=== PATIENT | female | born 1955 | race Caucasian/White ===

== ENCOUNTER 2021-11-24 08:07 | Outpatient (CLI) | payer MEDICARE ==
[~2021-11-24] VITALS: Ht 172.7 cm; Wt 52.3 kg
== END 2021-11-24 15:32 | disposition home or self-care (01) ==
LOC: PREOP 08:07
PROVIDERS: ATTEND Specialist
DX: Z01.818 Encounter for other preprocedural examination (principal)

== ENCOUNTER 2022-02-13 14:23 | Inpatient (IN) | payer MEDICARE, OTHER ==
[~2022-02-13] VITALS: Ht 172 cm; Wt 50.4 kg
--- NOTE | 2022-02-13 15:06 | ED Neurological Problem ---
General Chief Complaint: General Problems/Pain Stated Complaint: POSS STROKE Nursing Triage Note: PT BROUGHT TO ED POV FOR POSSIBLE STROKE. PT STATES SHE WOKE UP AROUND 0600 AND FELT HER LEFT ARM WAS WEAK. PT REPORTS WEAKNESS WITH STANDING THAT IS ALSO NEW. DENIES INJURY. PT ALERT AND ORIENTED X'S 4. PT BROUGHT TO ROOM 02 VIA WC FROM VEHICLE. NO FACIAL DROOPING OR SLURRED SPEECH. PER PT SHE GOOGLED AND HER SYMPTOMS COULD BE A POSSIBLE STROKE. SHE READ THAT RED WINE COULD HELP SO SHE HAD A SMALL CUP OF IT AROUND 1335. NO IMPROVEMENT. DAUGHTER IN LOBBY AT THIS TIME. Source: patient Exam Limitations: no limitations History of Present Illness Date Seen by Provider: Feb 13, 2022 Time Seen by Provider: 14:48 Initial Comments Patient is a 66-year-old female past medical history significant for hypertension although she is not on medications for this who presents to the emergency department today with a chief complaint of weakness to the left upper extremity and weakness in both of her legs. Patient states about 2 weeks ago she had an episode where her left arm felt a little numb and weak. It resolved spontaneously. She did not seek medical care for this episode. She states she woke up at about 6:00 this morning with similar symptoms and it has not resolved so her daughter insisted that she come to the emergency room for evaluation. The patient denies any headache., Vision problems, speech difficulty or swallowing difficulty. She states the left arm is not "numb". She has had no chest pain or shortness of breath. No abdominal pain, nausea vomiting or diarrhea. No GI symptoms. She states that she can walk "okay". She has never had a stroke before. She is a non-smoker. Her mother had a history of TIAs. She is fairly healthy. She likes to approach health from a "natural" approach. The last time she had a general medical evaluation has been at least 2 years ago. All other review of systems reviewed and negative except as stated. Timing/Duration: other (9hr) Severity: moderate Associated Symptoms: weakness (Left upper extremity and leg) Allergies and Home Medications Allergies Coded Allergies: No Known Drug Allergies (Unverified , 11/24/21) Patient Home Medication List Home Medication List Reviewed: Yes Aspirin (Children's Aspirin) 81 Mg Tab.chew, 81 MG PO DAILY@0900 Prescribed by: KISHAN MARTINEZ on 02/14/22 1151 Atorvastatin Calcium (Lipitor) 40 Mg Tablet, 40 MG PO HS Prescribed by: KISHAN MARTINEZ on 02/14/22 1151 Review of Systems Review of Systems Constitutional: see HPI Eyes: No Symptoms Reported Ears, Nose, Mouth, Throat: no symptoms reported Respiratory: no symptoms reported Cardiovascular: no symptoms reported Gastrointestinal: no symptoms reported Genitourinary: no symptoms reported : No Musculoskeletal: other (Weak left arm) Skin: no symptoms reported Psychiatric/Neurological: Weakness (Left arm) All Other Systems Reviewed Negative Unless Noted: Yes Past Vxxecte-Qklghp-Bcbuow Hx Patient Social History Tobacco Use?: No Substance use?: No Alcohol Use?: Yes Alcohol type: Wine Alcohol Frequency: Rarely Pt feels they are or have been: No Past Medical History Surgery/Hospitalization HX: PMH; HTN. SURGERY; DENIES. Physical Exam Vital Signs Vital Signs - First Documented 02/13/22 14:25 Temp 36.1 Resp 18 B/P (MAP) 177/113 (134) O2 Delivery Room Air Capillary Refill : Less Than 3 Seconds Height, Weight, BMI Height: '" Weight: lbs. oz. kg; 17.00 BMI Method: General Appearance: WD/WN, no apparent distress, thin HEENT: PERRL/EOMI, pharynx normal Neck: full range of motion, supple, other (Patient has soft mobile 2 and half centimeter diameter mass overlying the right anterior neck. She states that its been there at least 30 years it is nontender and not erythematous) Respiratory: lungs clear, normal breath sounds, no respiratory distress, no accessory muscle use Cardiovascular: regular rate, rhythm, tachycardia (126), systolic murmur (3/6 systolic ejection murmur noted at the left upper sternal border and left cardiac apex, less obvious right upper sternal border), other (No carotid bruits are auscultated) Gastrointestinal: normal bowel sounds, non tender, soft Extremities: normal range of motion, non-tender, normal inspection, no pedal edema, no calf tenderness, normal capillary refill Neurologic/Psychiatric: 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 She has a tiny bit of left arm drift. Good hand strength good flexion strength, equal bilateral) Crainal Nerves: normal hearing, normal speech, PERRL Coordination/Gait: No normal finger to nose; negative Romberg's sign, ABN nose to finger (L) Motor/Sensory: no sensory deficit Skin: normal color, warm/dry Stroke Onset of Symptoms Date of Onset of Symptoms: Feb 13, 2022 Time of Symptom Onset: 06:00 Onset of Symptoms: No Symptoms onset unknown: Yes NIH Stroke Scale Assessment Select: Initial Level of Consciousness: 0=Alert (0), Level of Consciousness-Questions: 0=Answers both month/age (0), LOC Commands: 0=Performs both tasks (0), Gaze: Normal (0), Visual Dickens: 0=No visual loss (0), Facial Movement (Facial Paresis): 0=Normal symmetrical mnt (0), Motor Function-Arms Right: 0=No drift (0), Motor Function-Arms Left: 1=Drift (1), Motor Function-Legs Right: 0=No drift (0), Limb Ataxia: 1=Present in one limb (1), Sensory: 0=Normal:no loss (0), Best Language: 0=No aphasia (0), Dysarthria: 0=Normal (0), Extinction & Inattention: 0=No abnormality (0), T otal: 2 Progress/Results/Core Measures Results/Orders Lab Results Laboratory Tests Test 02/13/22 14:30 02/13/22 14:42 02/13/22 15:47 Range/Units White Blood Count 5.3 4.3-11.0 10^3/uL Red Blood Count 4.94 3.80-5.11 10^6/uL Hemoglobin 14.3 11.5-16.0 g/dL Hematocrit 43 35-52 % Mean Corpuscular Volume 87 80-99 fL Mean Corpuscular Hemoglobin 29 25-34 pg Mean Corpuscular Hemoglobin Concent 33 32-36 g/dL Red Cell Distribution Width 12.8 10.0-14.5 % Platelet Count 269 130-400 10^3/uL Mean Platelet Volume 8.7 L 9.0-12.2 fL Immature Granulocyte % (Auto) 0 % Neutrophils (%) (Auto) 62 42-75 % Lymphocytes (%) (Auto) 29 12-44 % Monocytes (%) (Auto) 7 0-12 % Eosinophils (%) (Auto) 1 0-10 % Basophils (%) (Auto) 0 0-10 % Neutrophils # (Auto) 3.3 1.8-7.8 X 10^3 Lymphocytes # (Auto) 1.5 1.0-4.0 X 10^3 Monocytes # (Auto) 0.4 0.0-1.0 X 10^3 Eosinophils # (Auto) 0.1 0.0-0.3 10^3/uL Basophils # (Auto) 0.0 0.0-0.1 10^3/uL Immature Granulocyte # (Auto) 0.0 0.0-0.1 10^3/uL Prothrombin Time 12.2 12.2-14.7 SEC INR Comment 0.9 0.8-1.4 Activated Partial Thromboplast Time 35 24-35 SEC D-Dimer < 0.27 0.00-0.49 UG/ML Sodium Level 143 135-145 MMOL/L Potassium Level 3.7 3.6-5.0 MMOL/L Chloride Level 105 98-107 MMOL/L Carbon Dioxide Level 25 21-32 MMOL/L Anion Gap 13 5-14 MMOL/L Blood Urea Nitrogen 10 7-18 MG/DL Creatinine 0.74 0.60-1.30 MG/DL Estimat Glomerular Filtration Rate 89 BUN/Creatinine Ratio 14 Glucose Level 101 70-105 MG/DL Calcium Level 10.0 8.5-10.1 MG/DL Corrected Calcium 8.5-10.1 MG/DL Total Bilirubin 0.4 0.1-1.0 MG/DL Aspartate Amino Transf (AST/SGOT) 13 5-34 U/L Alanine Aminotransferase (ALT/SGPT) 13 0-55 U/L Alkaline Phosphatase 66 40-136 U/L Troponin I < 0.028 <0.028 NG/ML Total Protein 7.6 6.4-8.2 GM/DL Albumin 4.9 H 3.2-4.5 GM/DL Thyroid Stimulating Hormone (TSH) 3.58 0.35-4.94 UIU/ML Free Thyroxine 0.91 0.70-1.48 NG/DL Glucometer 94 70-110 MG/DL Urine Color YELLOW Urine Clarity CLEAR Urine pH 7.5 5-9 Urine Specific [place] 1.010 L 1.016-1.022 Urine Protein NEGATIVE NEGATIVE Urine Glucose (UA) NEGATIVE NEGATIVE Urine Ketones NEGATIVE NEGATIVE Urine Nitrite NEGATIVE NEGATIVE Urine Bilirubin NEGATIVE NEGATIVE Urine Urobilinogen 0.2 < = 1.0 MG/DL Urine Leukocyte Esterase NEGATIVE NEGATIVE Urine RBC (Auto) TRACE-I H NEGATIVE Urine RBC RARE /HPF Urine WBC NONE /HPF Urine Squamous Epithelial Cells NONE /HPF Urine Crystals NONE /LPF Urine Bacteria NEGATIVE /HPF Urine Casts NONE /LPF Urine Mucus NEGATIVE /LPF Urine Culture Indicated NO My Orders Orders - ALLY MERINO MD Cbc With Automated Diff (02/13/22 14:59) Protime With Inr (02/13/22 14:59) Partial Thromboplastin Time (02/13/22 14:59) Comprehensive Metabolic Panel (02/13/22 14:59) Fibrin Degradation Products (02/13/22 14:59) Troponin I [place] (02/13/22 14:59) Ua Culture If Indicated (02/13/22 14:59) Chest 1 View, Ap/Pa Only (02/13/22 14:59) Ekg Tracing (02/13/22 14:59) Nothing By Mouth (02/13/22 Lunch) Accucheck Stat ONCE (02/13/22 14:59) Ed Iv/Invasive Line Start (02/13/22 14:59) Ed Iv/Invasive Line Start (02/13/22 14:59) Vital Signs Stroke Patient Q15M (02/13/22 14:59) Ct Head Wo-R/O Stroke (02/13/22 14:59) O2 (02/13/22 14:59) Intake & Output ,14,22 (02/13/22 14:59) Monitor-Rhythm Ecg Trace Only (02/13/22 14:59) Dysphagia Screening Tool Q10MX1 (02/13/22 14:59) Post Thrombolytic Adminstratio (02/13/22 14:59) Lipid Panel (02/14/22 06:00) Thyroid Stimulating Hormone (02/13/22 16:01) Free T4 (Free Thyroxine) (02/13/22 16:01) Ct Angio Head/Neck (02/13/22 16:25) Iohexol Injection (Omnipaque 350 Mg/Ml 1 (02/13/22 17:00) Received Contrast (Hold Metformin- Contr (02/13/22 17:00) Ns (Ivpb) (Sodium Chloride 0.9% Ivpb Bag (02/13/22 17:00) Sodium Chloride Flush (Catheter Flush Sy (02/13/22 17:00) Medications Given in ED Vital Signs/I&O 02/13/22 14:25 Temp 36.1 Resp 18 B/P (MAP) 177/113 (134) O2 Delivery Room Air Blood Pressure Mean: 134 FSBG Bedside Testing Finger Stick Blood Glucose: 94 Blood Glucose Action Taken: PROVIDER NOTIFIED. Admisison Planning May Need Admission (Planning): 15:09 Progress Progress Note : Time: 15:59 Progress Note I spoke with [facility] neurology at this time, they do recommend further vascular imaging such as CT angio of the head and neck or MRA of the head and neck with contrast. At this time we do not have MRI available so I will pursue CT angio. Initial ECG Impression Date: Feb 13, 2022 Initial ECG Impression Time: 15:59 Initial ECG Rate: 89 Initial ECG Rhythm: Normal Sinus Initial ECG Intervals: Normal Initial ECG Impression: Normal Comment No ST segment elevation or depression, no ectopy Diagnostic Imaging Comments [facility], [place] NAME: KATHY SNOW [facility] REC#: [id number] PT STATUS: REG ER : 1955 PHYSICIAN: ALLY MERINO MD ADMIT DATE: 02/13/22/ER Draft Date of Exam:02/13/22 CT HEAD WO-R/O STROKE PROCEDURE: CT head wo r/o stroke. TECHNIQUE: Multiple contiguous axial images were obtained through the brain without the use of intravenous contrast. Auto Exposure Controls were utilized during the CT exam to meet ALARA standards for radiation dose reduction. INDICATION: Left-sided weakness. COMPARISON: No prior studies are available for comparison. FINDINGS: Ventricles and sulci are within normal limits. No sulcal effacement or midline shift is identified. No acute intra-axial or extra-axial hemorrhage is detected. Cisterns are patent. Visualized paranasal sinuses are clear. IMPRESSION: No acute intracranial process is detected. Dictated on workstation # [id number] Dict: 02/13/22 1515 Trans: 02/13/22 1519 [id number] Interpreted by: POWER ARNOLD MD Electronically signed by: [facility]: Xray Plain Films/CT/US/NM/MRI: chest Comments [facility] [place] NAME: KATHY SNOW [facility] REC#: [id number] PT STATUS: REG ER : 1955 PHYSICIAN: ALLY MERINO MD ADMIT DATE: 02/13/22/ER Draft Date of Exam:02/13/22 CHEST 1 VIEW, AP/PA ONLY INDICATION: Stroke. TECHNIQUE: Frontal chest obtained at 03:32 p.m. FINDINGS: Heart is borderline in size. The lungs show no focal infiltrate. There is no pneumothorax or pleural fluid. There is evidence of mass effect in the superior mediastinum with calcified density in the right side of the neck, displacing the trachea to the left. This may be due to a lesion of thyroid origin. IMPRESSION: No focal infiltrate or pneumothorax or pleural fluid. Mass effect in the superior mediastinum with shift of the trachea to the left side, with suggestion of calcified lesion. Consider ultrasound for further evaluation of the thyroid to determine if this is of thyroid origin. If this is not conclusive, then a CT may be helpful. Dictated on workstation # [id number] Dict: 02/13/22 1531 Trans: 02/13/22 1542 [facility] [id number] Interpreted by: LUIS ANGEL FORREST MD Electronically signed by: [facility]: CT Comments [facility] [place], [place] [facility] [id number] PT STATUS: REG ER : 1955 PHYSICIAN: ALLY MERINO MD ADMIT DATE: 02/13/22/ER Draft Date of Exam:02/13/22 CT ANGIO HEAD/NECK EXAMINATION: CT angiography head and neck with and without contrast. TECHNIQUE: After intravenous administration of contrast, thin section axial CT angiography of the head and neck was performed. Source data was reformatted into 3D MIP projections. All CT scans use one or more of the following dose optimizing techniques: automated exposure control, MA and/or KvP adjustment based on a patient size and exam type, or iterative reconstruction. HISTORY: left sided stroke symptoms COMPARISON: None available. FINDINGS: The middle cerebral arteries are normal. The posterior cerebral arteries are normal. The anterior cerebral arteries are normal. There is no large vessel occlusion. No aneurysm or vascular malformation seen. The origin of the left common carotid artery not included. Remaining left common carotid artery unremarkable patent in appearance. No dissection. No significant occlusion. Left internal carotid artery is patent with atherosclerotic disease intracranially. No significant stenosis. There is atherosclerotic disease in the right intracranial aspect of the internal carotid artery without significant stenosis. No dissection. The right common carotid artery is patent. Vertebral artery origins are normal. There is no significant stenosis or evidence for occlusion. No vertebral artery dissections. Delayed CT imaging of the brain not provided. There is a large lobular appearance to the right thyroid lobe which contains multiple lesions and calcifications. Sonographic characterization on a nonemergent basis recommended. No osseus lesions or fractures are seen. There is scarring in the visualized lung apices. IMPRESSION: 1. Normal vasculature in the head and neck without large vessel occlusion. 2. Large nodular and partially calcified right lobe of the thyroid gland. Sonographic characterization on a nonemergent basis recommended. Dictated on workstation # [id number] Dict: 02/13/221715 Trans: 02/13/221726 CV [id number] Interpreted by: ABE MCMULLEN MD Electronically signed by: Departure Communication (Admissions) Time/Spoke to Admitting Phy: 15:40 Dr Martinez Impression Primary Impression: CVA (cerebral vascular accident) Qualified Codes: I63.9 - Cerebral infarction, unspecified Additional Impression: High blood pressure Qualified Codes: I10 - Essential (primary) hypertension Disposition: ADMITTED INPATIENT Condition: Stable Admissions Decision to Admit Reason: Admit from ER (General) Decision to Admit/Date: Feb 13, 2022 Time/Decision to Admit Time: 15:08 Departure-Patient Inst. Referrals: NO,LOCAL PHYSICIAN (PCP/Family) Primary Care Physician Scripts Aspirin (Children's Aspirin) 81 Mg Tab.chew 81 MG PO DAILY@0900 for 30 Days, #30 TAB 0 Refills Prov: KISHAN MARTINEZ MD 02/14/22 Atorvastatin Calcium (Lipitor) 40 Mg Tablet 40 MG PO HS for 30 Days, #30 TAB 0 Refills Prov: KISHAN MARTINEZ MD 02/14/22 ALLY MERINO MD Feb 13, 2022 15:06
[2022-02-13 15:08] LABS: ALBUMIN 4.9 GM/DL (3.2-4.5); CHLORIDE 105 MMOL/L (98-107); POTASSIUM 3.7 MMOL/L (3.6-5.0); SODIUM 143 MMOL/L (135-145)
[2022-02-13 15:10] LABS: GLUCOSE 101 MG/DL (70-105); TOTAL PROTEIN 7.6 GM/DL (6.4-8.2)
[2022-02-13 15:11] LABS: CARBON DIOXIDE 25 MMOL/L (21-32)
[2022-02-13 15:12] LABS: BILIRUBIN,TOTAL 0.4 MG/DL (0.1-1.0)
[2022-02-13 15:14] LABS: ALKALINE PHOSPHATASE 66 U/L (40-136); CREATININE SERUM 0.74 MG/DL (0.60-1.30); GFR ESTIMATED 89
[2022-02-13 15:15] LABS: BUN/CREATININE RATIO 14
[2022-02-13 15:16] LABS: BASOPHILS % (AUTO) 0 % (0-10); EOSINOPHILS # (AUTO) 0.1 10^3/uL (0.0-0.3); EOSINOPHILS % (AUTO) 1 % (0-10); HEMATOCRIT 43 % (35-52); HEMOGLOBIN 14.3 g/dL (11.5-16.0); LYMPHOCYTES # (AUTO) 1.5 X 10^3 (1.0-4.0); LYMPHOCYTES % (AUTO) 29 % (12-44); MEAN CORPUSCULAR HEMOGLOBIN 29 pg (25-34); MEAN CORPUSCULAR HGB CONC 33 g/dL (32-36); MEAN CORPUSCULAR VOLUME 87 fL (80-99); MEAN PLATELET VOLUME 8.7 fL (9.0-12.2); MONOCYTES # (AUTO) 0.4 X 10^3 (0.0-1.0); MONOCYTES % (AUTO) 7 % (0-12); NEUTROPHILS # (AUTO) 3.3 X 10^3 (1.8-7.8); NEUTROPHILS % (AUTO) 62 % (42-75); PLATELET COUNT 269 10^3/uL (130-400); WHITE BLOOD COUNT 5.3 10^3/uL (4.3-11.0)
[2022-02-13 15:17] LABS: ALANINE AMINOTRANSFERASE 13 U/L (0-55)
--- NOTE | 2022-02-13 15:20 | Diagnostic Imaging Report ---
PROCEDURE: CT head wo r/o stroke. TECHNIQUE: Multiple contiguous axial images were obtained through the brain without the use of intravenous contrast. Auto Exposure Controls were utilized during the CT exam to meet ALARA standards for radiation dose reduction. INDICATION: Left-sided weakness. COMPARISON: No prior studies are available for comparison. FINDINGS: Ventricles and sulci are within normal limits. No sulcal effacement or midline shift is identified. No acute intra-axial or extra-axial hemorrhage is detected. Cisterns are patent. Visualized paranasal sinuses are clear. IMPRESSION: No acute intracranial process is detected. Dictated by: Dictated on workstation # [id number]
--- NOTE | 2022-02-13 15:42 | Diagnostic Imaging Report ---
INDICATION: Stroke. TECHNIQUE: Frontal chest obtained at 03:32 p.m. FINDINGS: Heart is borderline in size. The lungs show no focal infiltrate. There is no pneumothorax or pleural fluid. There is evidence of mass effect in the superior mediastinum with calcified density in the right side of the neck, displacing the trachea to the left. This may be due to a lesion of thyroid origin. IMPRESSION: No focal infiltrate or pneumothorax or pleural fluid. Mass effect in the superior mediastinum with shift of the trachea to the left side, with suggestion of calcified lesion. Consider ultrasound for further evaluation of the thyroid to determine if this is of thyroid origin. If this is not conclusive, then a CT may be helpful. Dictated by: Dictated on workstation # [id number]
[2022-02-13 15:53] LABS: BILIRUBIN,URINE NEGATIVE (NEGATIVE); CLARITY,URINE CLEAR; COLOR,URINE YELLOW; GLUCOSE, URINE (UA) NEGATIVE (NEGATIVE); KETONES,URINE NEGATIVE (NEGATIVE); LEUKOCYTE ESTERASE ,URINE NEGATIVE (NEGATIVE); NITRITE,URINE NEGATIVE (NEGATIVE); PH,URINE 7.5 (5-9); PROTEIN,URINE NEGATIVE (NEGATIVE)
[2022-02-13 15:55] LABS: FIBRIN DEGRADATION PRODUCTS < 0.27 UG/ML (0.00-0.49); INR 0.9 (0.8-1.4); PARTIAL THROMBOPLASTIN TIME 35 SEC (24-35); PROTHROMBIN TIME PATIENT 12.2 SEC (12.2-14.7)
[2022-02-13 16:11] LABS: BACTERIA,URINE NEGATIVE /HPF; RBC,URINE RARE /HPF
[2022-02-13 16:35] LABS: FREE T4 (FREE THYROXINE) 0.91 NG/DL (0.70-1.48)
[2022-02-13] MEDS ORDERED: HOLD METFORMIN - RECEIVED CONTRAST 20 ML VIAL IV SCH (17:00)
[2022-02-13] MEDS ORDERED: CATHETER FLUSH 10 ML SYR IV PRN ×2 (17:00→18:45)
[2022-02-13] MEDS ORDERED: IOHEXOL 350 MG/ML 100 ML (OMNIPAQUE 350) VIAL IV ONE (17:00)
[2022-02-13] MEDS ORDERED: NS 100 ML (IVPB) BAG IV ONE (17:00)
--- NOTE | 2022-02-13 17:28 | Diagnostic Imaging Report ---
EXAMINATION: CT angiography head and neck with and without contrast. TECHNIQUE: After intravenous administration of contrast, thin section axial CT angiography of the head and neck was performed. Source data was reformatted into 3D MIP projections. All CT scans use one or more of the following dose optimizing techniques: automated exposure control, MA and/or KvP adjustment based on a patient size and exam type, or iterative reconstruction. HISTORY: left sided stroke symptoms COMPARISON: None available. FINDINGS: The middle cerebral arteries are normal. The posterior cerebral arteries are normal. The anterior cerebral arteries are normal. There is no large vessel occlusion. No aneurysm or vascular malformation seen. The origin of the left common carotid artery not included. Remaining left common carotid artery unremarkable patent in appearance. No dissection. No significant occlusion. Left internal carotid artery is patent with atherosclerotic disease intracranially. No significant stenosis. There is atherosclerotic disease in the right intracranial aspect of the internal carotid artery without significant stenosis. No dissection. The right common carotid artery is patent. Vertebral artery origins are normal. There is no significant stenosis or evidence for occlusion. No vertebral artery dissections. Delayed CT imaging of the brain not provided. There is a large lobular appearance to the right thyroid lobe which contains multiple lesions and calcifications. Sonographic characterization on a nonemergent basis recommended. No osseus lesions or fractures are seen. There is scarring in the visualized lung apices. IMPRESSION: 1. Normal vasculature in the head and neck without large vessel occlusion. 2. Large nodular and partially calcified right lobe of the thyroid gland. Sonographic characterization on a nonemergent basis recommended. Dictated by: Dictated on workstation # [id number]
[2022-02-13 18:30] VITALS: BP 158/78
[2022-02-13] MEDS ORDERED: ONDANSETRON 4 MG (ZOFRAN) ORAL DISSOLVE TAB PO PRN (19:15)
[2022-02-13] MEDS ORDERED: MELATONIN 3 MG TABLET PO PRN (19:15)
[2022-02-13] MEDS ORDERED: ONDANSETRON 4 MG/2 ML (SDV) Z0FRAN IV PRN (19:15)
[2022-02-13] MEDS ORDERED: diphenhydrAMINE 25 MG TAB (BENADRYL) PO PRN (19:15)
[2022-02-13] MEDS ORDERED: ACETAMINOPHEN 325 MG TABLET PO PRN (19:15)
[2022-02-13] MEDS ORDERED: ANTACID SUSP 30 ML UDC (MYLANTA) PO PRN (19:15)
[2022-02-13] MEDS ORDERED: polyethylene glycoL POWDER 17 GM (MIRALAX) PACK PO PRN (19:15)
[2022-02-13 19:53] VITALS: BP 176/82
[2022-02-13] MEDS ORDERED: RT-ALBUTEROL SULF 2.5 MG/3 ML PRE-MIX VIAL INH PRN (20:30)
[2022-02-13] MEDS ORDERED: ENOXAPARIN INJECTION 30 MG/0.3 ML SYR SC SCH (21:43)
[2022-02-13] MEDS: CATHETER FLUSH 10 ML SYR IV SCH (22:06)
[2022-02-13 23:52] VITALS: BP 156/93
[2022-02-14 03:29] VITALS: BP 131/73
[2022-02-14 04:50] VITALS: BP 93/54
[2022-02-14] MEDS ORDERED: NS IV 1000 ML 1,000 ML ONE (04:58)
[2022-02-14] MEDS ORDERED: NS IV 1000 ML 1,000 ML IV SCH (05:30)
[2022-02-14 05:45] VITALS: BP 118/60
[2022-02-14 05:57] LABS: TRIGLYCERIDES 133 MG/DL (<150); VLDL CHOLESTEROL 27 MG/DL (5-40)
[2022-02-14 06:01] LABS: CHOLESTEROL 216 MG/DL (< 200)
[2022-02-14 06:02] LABS: HDL CHOLESTEROL 65 MG/DL (40-60)
[2022-02-14] MEDS: CATHETER FLUSH 10 ML SYR IV SCH (06:18)
[2022-02-14 08:44] VITALS: BP 131/87
--- NOTE | 2022-02-14 08:48 | Diagnostic Imaging Report ---
CLINICAL INDICATION: Patient with CVA. Comparison: None Exam: Real-time ultrasound carotid Doppler duplex imaging is performed bilaterally with multiple real-time grayscale images obtained in various projections. Additional spectral analysis and color Doppler duple images were also obtained. Peak systolic velocity, ICA/CCA peak systolic ratio, spectral analysis, and vascular morphology are studied. Findings: ARTERY VELOCITY Right Left CCA 0.64 m/s 0.65 m/s ICA 0.58 m/s 0.67 m/s ECA 0.82 m/s 0.70 m/s ICA/CCA 0.9 1.0 VERT.ART Antegrade Antegrade There is minimal atherosclerotic disease involving the bilateral carotid arteries with no significant stenosis. Enlarged heterogeneous thyroid gland with right thyroid nodule noted. Thyroid ultrasound would better evaluate. Impression: 1: There is mild bilateral carotid artery atherosclerotic disease with no grayscale or Doppler evidence of significant vascular stenosis. 2: Heterogeneous and enlarged thyroid gland with right thyroid nodule seen. Thyroid ultrasound is suggested for further evaluation. Dictated by: Dictated on workstation # [id number]
[2022-02-14] MEDS ORDERED: ASPIRIN 81 MG CHEW (CHILDREN'S ASA) PO SCH (09:00)
--- NOTE | 2022-02-14 09:33 | Diagnostic Imaging Report ---
PROCEDURE: MR imaging of the brain without contrast. TECHNIQUE: Multiplanar, multisequence MR imaging of the brain was performed without contrast. INDICATION: Left-sided weakness. Concern for acute ischemia. COMPARISON: 02/13/2022. FINDINGS: A small focus of acute/subacute ischemia is seen involving the right basal ganglia and extending into the right tavarez radiata. No associated hemorrhage or mass effect. Additional small amount of scattered chronic microvascular disease is seen in the subcortical white matter. The ventricles, cortical sulci, and basilar cisterns are symmetric and unremarkable. The sellar and suprasellar regions have a normal appearance. The brainstem and posterior fossa are unremarkable. The paranasal sinuses and mastoid air cells demonstrate normal signal characteristics. The globes and orbits are symmetric and unremarkable. The scalp and calvarium have a normal appearance. IMPRESSION: 1. Small focus of acute/subacute ischemia involving the right basal ganglia and right tavarez radiata. No associated hemorrhage or mass effect. 2. Scattered small amount of chronic microvascular disease in the periventricular and subcortical white matter. Dictated by: Dictated on workstation # [id number]
[2022-02-14 11:29] VITALS: BP 153/81
--- NOTE | 2022-02-14 11:41 | Physical Therapy Evaluation ---
PT Evaluation-General Medical Diagnosis Admission Date Feb 13, 2022 at 17:42 Medical Diagnosis: CVA/HTN Onset Date: Feb 13, 2022 Therapy Diagnosis Therapy Diagnosis: generalized weakness/debility Precautions Precautions/Isolations: Fall Prevention, Standard Precautions Referral Physician: Jeff Reason for Referral: Evaluation/Treatment Medical History Pertinent Medical History: HTN Current History ER secondary to L UE weakness Reviewed History: Yes Social History Home: Single Level Current Living Status: Spouse Entry Into Home: Stairs With Railing PT Steps Into Home: 4 Prior Prior Level of Function SCALE: Activities may be completed with or without assistive devices. 7-Oabmttttnn-hznhsup completes the activity by him/herself with no assistance from a helper. 5-Set-up or Clean-up Assistance-helper sets up or cleans up; patient completes activity. [place] assists only prior to or following the activity. 4-Supervision or Touching Assistance-helper provides verbal cues and/or touching/steadying and/or contact guard assistance as patient completes activity. Assistance may be provided throughout the activity or intermittently. 3-Partial/Moderate Assistance-helper does LESS THAN HALF the effort. [place] l ifts, holds or supports trunk or limbs, but provides less than half the effort. 2-Substantial/Maximal Assistance-helper does MORE THAN HALF the effort. [place] lifts or holds trunk or limbs and provides more than half the effort. 4-Zafkjmlxa-ctpvpa does ALL the effort. Patient does none of the effort to complete the activity. Or, the assistance of 2 or more helpers is required for t he patient to complete the activity. If activity was not attempted, code reason: 7-Patient Refused. 9-Not Applicable-not attempted and the patient did not perform the activity before the current illness, exacerbation or injury. 10-Not Attempted due to Environmental Limitations-(lack of equipment, weather restraints, etc.). 88-Not Attempted due to Medical Conditions or Safety Concerns. Bed Mobility: 6 Transfers (B,C,W/C): 6 Gait: 6 Stairs: 6 Indoor Mobility (Ambulation): Independent Stairs: Independent Prior Devices Use: None PT Evaluation-Current Subjective Patient agrees to PT. Spouse present. Objective Patient Orientation: Normal For Age ROM/Strength ROM Lower Extremities bilateral LE WFL Strength Lower Extremities left LE 3-/5 knee flexion/extension, hip flexion, DF/PF; right LE 4/5 grossly Integumentary/Posture Bowel Incontinence: No Bladder Incontinence: No Posture WFL Neuromuscular (Tone, Coordination, Reflexes) diminished coordination and proprioception left LE with noted left LE lag with ambulation Sensory Vision: Functional Hearing: Functional Transfers Roll Left to Right (QC): 6 Sit to Lying (QC): 6 Lying to Sitting/Side of Bed(Q: 6 Sit to Stand (QC): 4 Chair/Lut-pj-Pqiqn Xfer(QC): 4 Gait Mode of Locomotion: Walk Anticipated Mode of Locomotion: Walk Walk 10 feet (QC): 4 Walk 50 ft with 2 Turns(QC): 4 Walk 150 ft (QC): 4 Walking 10ft/uneven surface-QC: 4 Distance: 250' x 2 Gait Assistive Device: FWW Comments/Gait Description CGA for safety with noted left LE lag with diminished coordination Stairs #of Steps: 12 1 Step (curb) (QC): 4 4 Steps (QC): 4 12 Steps (QC): 4 CGA for safety with reciprocal pattern Balance Sitting Static: Normal Sitting Dynamic: Normal Standing Static: Fair Standing Dynamic: Fair Assessment/Needs 66 y.o. will benefit from skilled PT to address functional strength and mobility to improve current LOF to safely return to home at maximum LOF. Rehab Potential: Fair PT Skein Spooler Goals Detention Goals PT Skein Spooler Goals Time Frame: Feb 25, 2022 Roll Left & Right (QC): 6 Sit to Lying (QC): 6 Lying-Sitting on Side/Bed(QC): 6 Sit to Stand (QC): 6 Chair/Ilr-dy-Axndh Xfer(QC): 6 Toilet Transfer (QC): 6 Walk 10 feet (QC): 6 Walk 50ft with 2 Turns (QC): 6 Walk 150 ft (QC): 6 Walking 10ft on Uneven Surface: 6 1 Step (curb) (QC): 6 4 Steps (QC): 6 12 Steps (QC): 6 PT Plan Problem List Problem List: Activity Tolerance, Functional Strength, Safety, Balance, Gait, Transfer Treatment/Plan Treatment Plan: Continue Plan of Care Treatment Plan: Education, Functional Activity Thelma, Functional Strength, Gait, Safety, Therapeutic Exercise, Transfers Treatment Duration: Feb 25, 2022 Frequency: 6 times per week Estimated Hrs Per Day: .25 hour per day Patient and/or Family Agrees t: Yes Discharge Recommendations Therapy Discharge Recommendati: Post Acute PT Time/GCodes Time In: 1014 Time Out: 1026 Total Billed Treatment Time: 12 Total Billed Treatment 1 visit EVModC 12 min AGUILAR BRUSH PT Feb 14, 2022 11:41
[2022-02-14] MEDS ORDERED: ASPI81TA64 PO (11:51)
[2022-02-14] MEDS ORDERED: ATOR40TA PO (11:51)
[2022-02-14 12:00] VITALS: BP 153/81
--- NOTE | 2022-02-14 13:38 | Occ Therapy Progress Note ---
Therapy Progress Note OT orders received and chart reviewed. Pt out of room at OT arrival. Per MANAGER WATER, pt already discharged from facility. Nella Torres OT Feb 14, 2022 13:38
--- NOTE | 2022-02-14 19:06 | Discharge Summary ---
Discharge Summary Hospital Course Problems/Dx: (1) Stroke of right basal ganglia Status: Acute (2) HTN (hypertension) Status: Acute Qualifiers: Qualified Codes: I10 - Essential (primary) hypertension (3) HLD (hyperlipidemia) Status: Acute Qualifiers: Qualified Codes: E78.2 - Mixed hyperlipidemia Hospital Course Date of Admission: Feb 13, 2022 at 17:42 Admission Diagnosis : Stroke Family Physician/Provider: Destiny,Local Physician Date of Discharge: 02/14/22 Discharge Diagnosis: Stroke of the right basal ganglia, HTN, HLD Hospital Course: Reva Del Castillo is a 66 year old female who presented with weakness and was admi tted with stroke. She underwent CT/CTA which was unrevealing. She underwent an MRI which showed acute/subacute infarction in the right basal ganglia and tavarez radiata. She was started on Aspirin and Lipitor. Her CTA and carotid ultrasounds showed mild carotid stenosis. Her echo showed normal EF with no other significant abnormalities. She had elevated blood pressure on arrival, but was normotensive on the morning of discharge. We discussed that she may need to be started on a blood pressure medication at her follow up appointment with her PCP if her blood pressures are high. She plans to start outpatient physical therapy. She needs to establish with a primary care physician and plans to follow with Dr. Reid. She previously followed with a BASIL Weiner in [place]. She was discharged home in stable condition. Labs and Pending Lab Test: Laboratory Tests 02/14/22 05:17: Triglycerides Level 133, Cholesterol Level 216H, LDL Cholesterol Direct 145H, VLDL Cholesterol 27, HDL Cholesterol 65H Home Meds Active Children's Aspirin (Aspirin) 81 Mg Tab.chew 81 Mg PO DAILY@0900 30 Days Lipitor (Atorvastatin Calcium) 40 Mg Tablet 40 Mg PO HS 30 Days Assessment/Pt Instructions See instructions Discharge Planning: >30 minutes discharge planning Discharge Instructions Discharge Diet: Low Sodium Diet Activity as Tolerated: Yes Discharge Physical Examination Vital Signs Vital Signs Date Time Temp Pulse Resp B/P (MAP) Pulse Ox O2 Delivery O2 Flow Rate FiO2 02/14/22 12:00 36.5 81 16 153/81 98 Room Air General Appearance: No Apparent Distress, Thin HEENT: PERRL/EOMI, Pharynx Normal Respiratory: Lungs Clear, Normal Breath Sounds, No Respiratory Distress Cardiovascular: Regular Rate, Rhythm, No Edema, No Murmur Gastrointestinal: Normal Bowel Sounds, Non Tender, Soft Extremity: Normal Inspection, Non Tender, No Pedal Edema Skin: Normal Color, Warm/Dry Neurologic/Psychiatric: Alert, Oriented x3, Normal Mood/Affect; No Aphasia, No Facial Droop; Motor Weakness Allergies: Coded Allergies: No Known Drug Allergies (Unverified , 11/24/21) Copy Copies To 1: RADHA REID DO Discharge Summary Date of Admission Feb 13, 2022 at 17:42 Date of Discharge Feb 14, 2022 at 13:00 Discharge Date: Feb 14, 2022 Discharge Time: 13:00 Admission Diagnosis Stroke Discharge Diagnosis (1) Stroke of right basal ganglia Status: Acute (2) HTN (hypertension) Status: Acute Qualifiers: Qualified Codes: I10 - Essential (primary) hypertension (3) HLD (hyperlipidemia) Status: Acute Qualifiers: Qualified Codes: E78.2 - Mixed hyperlipidemia Clinical Quality Measures Stroke: Date of last known well: Feb 13, 2022 Time of last known well: 06:00 Symptoms onset unknown: Yes KISHAN MARTINEZ MD Feb 14, 2022 19:06
== END 2022-02-14 13:00 | disposition home or self-care (01) | DRG 65 ==
LOC: EDUNIT# 14:23 → ER 14:27 → 4TH 17:42
PROVIDERS: ADMIT Internal Medicine; ATTEND Internal Medicine
DX: I63.9 Cerebral infarction, unspecified (principal); G81.94 Hemiplegia, unspecified affecting left nondominant side; I10 Essential (primary) hypertension; R29.702 NIHSS score 2; G83.11 Monoplegia of lower limb affecting right dominant side; E78.5 Hyperlipidemia, unspecified
CPT/HCPCS: 36415; 70450; 70496; 70498; 70551; 71045; 80053; 80061; 81000; 82947; 84439; 84443; 84484; 85025; 85379; 85610; 85730; 93005; 93041; 93306; 93880

== ENCOUNTER 2022-02-17 12:29 | Emergency (ER) | payer MEDICARE, OTHER ==
[~2022-02-17] VITALS: Ht 167 cm; Wt 61.0 kg
[~2022-02-17 12:29] MED LIST: ASPI81TA64 PO; ATOR40TA PO
[2022-02-17] MEDS ORDERED: lisINopril 10 MG (PRINIVIL) TABLET ONE (12:52)
--- NOTE | 2022-02-17 13:24 | ED Cardiac General ---
History of Present Illness General Chief Complaint: Cardiac/General Problems Stated Complaint: HTN Source: patient, family (sanjana) Exam Limitations: no limitations History of Present Illness Date Seen by Provider: Feb 17, 2022 Time Seen by Provider: 13:00 Initial Comments Patient to the ER by private conveyance with her daughter with chief complaint that she was discharged from the hospital on Sunday from a stroke and was put on aspirin and Lipitor but was not sent home with anything for blood pressure. She has had difficulty establishing care with Dr. Reid and so has been having blood pressures that were up 188 systolic. She is not on anything however she used to take amlodipine and had some from a few years ago so she started taking that for the past couple days without success of treating her blood pressure. Allergies and Home Medications Allergies Coded Allergies: No Known Drug Allergies (Unverified , 11/24/21) Patient Home Medication List Home Medication List Reviewed: Yes Aspirin (Children's Aspirin) 81 Mg Tab.chew, 81 MG PO DAILY@0900 Prescribed by: KISHAN MARTINEZ on 02/14/22 1151 Atorvastatin Calcium (Lipitor) 40 Mg Tablet, 40 MG PO HS Prescribed by: KISHAN MARTINEZ on 02/14/22 1151 Lisinopril (Lisinopril) 20 Mg Tablet, 20 MG PO DAILY Prescribed by: NATIVIDAD MORRIS on 02/17/22 1413 Review of Systems Review of Systems Constitutional: No chills, No diaphoresis EENTM: No Blurred Vision, No Double Vision Respiratory: Denies Cough, Denies Shortness of Air Cardiovascular: Denies Chest Pain, Denies Lightheadedness Gastrointestinal: Denies Constipated, Denies Nausea Genitourinary: Denies Burning, Denies Discharge All Other Systems Reviewed Negative Unless Noted: Yes Past Pmhhwzo-Ibgujd-Ketyob Hx Patient Social History Tobacco Use?: No Use of E-Cig and/or Vaping dev: No Substance use?: No Past Medical History Surgery/Hospitalization HX: PMH; HTN. SURGERY; DENIES. Physical Exam Vital Signs Vital Signs - First Documented 02/17/22 12:52 Temp 36.7 Pulse 125 Resp 20 B/P (MAP) 188/115 (139) Pulse Ox 98 O2 Delivery Room Air Capillary Refill : Less Than 3 Seconds Height, Weight, BMI Height: '" Weight: lbs. oz. kg; 17.03 BMI Method: General Appearance: WD/WN, Anxious HEENT: PERRL/EOMI, Pharynx Normal, Moist Mucous Membranes Neck: Full Range of Motion, Normal Inspection Respiratory: No Accessory Muscle Use, No Respiratory Distress Cardiovascular: Regular Rate, Rhythm, No Edema, Normal Peripheral Pulses Extremity: Normal Capillary Refill, Normal Inspection, No Pedal Edema Neurologic/Psychiatric: Alert, Oriented x3, No Motor/Sensory Deficits, Normal Mood/Affect, overedge sewer II-XII Norm as Tested, Other (NIH is 0 points) Progress/Results/Core Measures Results/Orders My Orders Orders - NATIVIDAD MORRIS Lisinopril Tablet (Zestril Tablet) (02/17/22 12:52) Medications Given in ED Current Medications Medications Dose Ordered Sig/Gregorio Route Start Time Stop Time Status Last Admin Dose Admin Lisinopril 10 mg STK-MED ONCE .ROUTE 02/17/22 12:52 02/17/22 12:54 DC 02/17/22 12:52 10 MG Vital Signs/I&O 02/17/22 02/17/22 12:52 14:28 Temp 36.7 36.7 Pulse 125 93 Resp 20 20 B/P (MAP) 188/115 (139) 139/91 Pulse Ox 98 99 O2 Delivery Room Air Room Air Progress Progress Note : Time: 14:08 Progress Note After 20 mg of lisinopril we witnessed the patient's blood pressure come down to 139/99. This is a good drop in blood pressure. She has happy with this and we have given her return precautions. She has no neurologic findings. NIH of 0 points. She is not having any other complaints and just wants something for blood pressure. We have encouraged her to take this for 4 to 5 days and log her blood pressure and if it stays consistently above 150/100 then she can double it to 40 mg. Follow-up with her primary care provider. Departure Impression Primary Impression: HTN (hypertension) Qualified Codes: I10 - Essential (primary) hypertension Additional Impression: Insomnia Qualified Codes: G47.00 - Insomnia, unspecified Disposition: HOME, SELF-CARE Condition: Stable Departure-Patient Inst. Decision time for Depature: 14:09 Referrals: NO,LOCAL PHYSICIAN (PCP/Family) Primary Care Physician Patient Instructions: High Blood Pressure (DC), Insomnia (DC), Tips for Getting Better Sleep, What Is a Sleep Study?, How to Keep Track of Your Sleep Add. Discharge Instructions: Lisinopril 20 mg daily in the morning. Take your blood pressure first thing in the morning after you get up. Log this at least 3-5 times a week and take this log with you to the primary care office at your next appointment. If after 5 days your blood pressure is still consistently above 150/100 then you may double the lisinopril to 40 mg a day. Return to the nearest ER if you are having weakness, numbness, loss of control of bowel or bladder, facial asymmetry or other worrisome symptoms. Discontinue using the amlodipine. Review the handouts on sleep. Start using melatonin 1/2-hour prior to wanting to go to sleep. Use up to 10 mg at night. Do not have any lights such as from a TV, cell phone or laptop in your bedroom. All discharge instructions reviewed with patient and/or family. Voiced understanding. Scripts Lisinopril (Lisinopril) 20 Mg Tablet 20 MG PO DAILY for 30 Days, #30 TAB 0 Refills Prov: NATIVIDAD MORRIS 02/17/22 NATIVIDAD MORRIS Feb 17, 2022 13:24
[2022-02-17] MEDS ORDERED: LISI20TA26 PO (14:13)
[2022-02-17 14:28] VITALS: BP 139/91
== END 2022-02-17 14:29 | disposition home or self-care (01) ==
LOC: EDUNIT# 12:29 → ER 12:30
DX: I10 Essential (primary) hypertension (principal); G47.00 Insomnia, unspecified; Z79.899 Other long term (current) drug therapy
CPT/HCPCS: 99283

== ENCOUNTER → 2022-02-23 | Outpatient (RCR) | payer MEDICARE, OTHER ==
[~2022-02-23] MED LIST changes: +LISI20TA26 PO
== END ==
PROVIDERS: ATTEND Physician Assistant
DX: I63.9 Cerebral infarction, unspecified (principal); I10 Essential (primary) hypertension

== ENCOUNTER 2022-03-14 11:35 | Emergency (ER) | payer MEDICARE, OTHER ==
[~2022-03-14] VITALS: Ht 172 cm; Wt 52.0 kg
--- NOTE | 2022-03-14 11:55 | ED General ---
General Stated Complaint: HIGH BP,DIZZINESS Source of Information: Patient Exam Limitations: No Limitations History of Present Illness Date Seen by Provider: Mar 14, 2022 Time Seen by Provider: 11:52 Initial Comments Patient is a 66-year-old female with a history of hypertension, stroke who presents ED with headache, lightheadedness, dizziness. She states yesterday she felt off. Took her blood pressure which was reading around 155/98. She does take 20 mg lisinopril daily. She felt nauseous without vomiting. Woke up this morning with the continued elevated blood pressure of 153/100. She increased her lisinopril to 40 mg. She had slight improvement of blood pressure 144/100 on arrival. She denies of any room spinning, headache, visual changes, unilateral muscle weakness or sensory changes. She does feel off. She denies unsteady gait. History of residual left-sided weakness in her left arm. Currently in PT OT secondary to a stroke in January. She currently follows up with Deion Weiner for primary care physician needs. Denies fever, chills, chest pain, neck pain, abdominal pain, dysuria, hematuria, cough, shortness of breath Allergies and Home Medications Allergies Coded Allergies: No Known Drug Allergies (Unverified , 11/24/21) Patient Home Medication List Home Medication List Reviewed: Yes Aspirin (Children's Aspirin) 81 Mg Tab.chew, 81 MG PO DAILY@0900 Prescribed by: KISHAN MARTINEZ on 02/14/22 1151 Atorvastatin Calcium (Lipitor) 40 Mg Tablet, 40 MG PO HS Prescribed by: KISHAN MARTINEZ on 02/14/22 1151 Lisinopril (Lisinopril) 20 Mg Tablet, 20 MG PO DAILY Prescribed by: NATIVIDAD MORRIS on 02/17/22 1413 Metoprolol Succinate (Metoprolol Succinate) 25 Mg Tab.er.24h, 25 MG PO DAILY Prescribed by: BASIL TRIMBLE on 03/14/22 1414 Ondansetron (Ondansetron Odt) 4 Mg Tab.rapdis, 4 MG PO Q4H Prescribed by: BASIL TRIMBLE on 03/14/22 1412 Review of Systems Review of Systems Constitutional: No chills, No diaphoresis EENTM: No blurred vision, No double vision Respiratory: No cough, No dyspnea on exertion Cardiovascular: No chest pain, No edema Gastrointestinal: No abdominal pain, No dysphagia; nausea; No vomiting Genitourinary: No discharge Musculoskeletal: No back pain, No joint pain Skin: No change in color, No change in hair/nails Psychiatric/Neurological: Denies Anxiety; Other (lightheadness) All Other Systems Reviewed Negative Unless Noted: Yes Past Jhxoyba-Tbwdkp-Idbvnp Hx Past Medical History Surgery/Hospitalization HX: PMH; HTN. SURGERY; DENIES. Physical Exam Vital Signs Vital Signs - First Documented 03/14/22 11:40 Temp 36.8 Pulse 124 Resp 16 B/P (MAP) 144/104 (117) Pulse Ox 100 O2 Delivery Room Air Capillary Refill : Height, Weight, BMI Height: '" Weight: lbs. oz. kg; 21.00 BMI Method: General Appearance: No Apparent Distress, WD/WN Eyes: Bilateral Eye Normal Inspection, Bilateral Eye PERRL, Bilateral Eye EOMI HEENT: PERRL/EOMI, TMs Normal, Normal ENT Inspection, Pharynx Normal Neck: Full Range of Motion, Normal Inspection, Non Tender, Supple Respiratory: Chest Non Tender, Lungs Clear, Normal Breath Sounds, No Accessory Muscle Use, No Respiratory Distress Cardiovascular: Regular Rate, Rhythm, No Edema, No Gallop, No JVD, No Murmur Gastrointestinal: Normal Bowel Sounds, No Organomegaly, No Pulsatile Mass, Non Tender Extremity: Normal Capillary Refill, Normal Inspection, Normal Range of Motion, Non Tender Neurologic/Psychiatric: Alert, Oriented x3, No Motor/Sensory Deficits, tooling inspector II- XII Norm as Tested Skin: Normal Color, Warm/Dry Progress/Results/Core Measures Suspected Sepsis SIRS Temperature: Pulse: Respiratory Rate: Laboratory Tests 03/14/22 11:56: White Blood Count 5.3 Blood Pressure / Mean: Laboratory Tests 03/14/22 11:56: Creatinine 0.82, Platelet Count 239, Total Bilirubin 0.7 Results/Orders Lab Results Laboratory Tests Test 03/14/22 11:56 Range/Units White Blood Count 5.3 4.3-11.0 10^3/uL Red Blood Count 4.78 3.80-5.11 10^6/uL Hemoglobin 14.0 11.5-16.0 g/dL Hematocrit 42 35-52 % Mean Corpuscular Volume 87 80-99 fL Mean Corpuscular Hemoglobin 29 25-34 pg Mean Corpuscular Hemoglobin Concent 34 32-36 g/dL Red Cell Distribution Width 12.5 10.0-14.5 % Platelet Count 239 130-400 10^3/uL Mean Platelet Volume 8.9 L 9.0-12.2 fL Immature Granulocyte % (Auto) 0 % Neutrophils (%) (Auto) 70 42-75 % Lymphocytes (%) (Auto) 22 12-44 % Monocytes (%) (Auto) 6 0-12 % Eosinophils (%) (Auto) 1 0-10 % Basophils (%) (Auto) 1 0-10 % Neutrophils # (Auto) 3.7 1.8-7.8 10^3/uL Lymphocytes # (Auto) 1.2 1.0-4.0 10^3/uL Monocytes # (Auto) 0.3 0.0-1.0 10^3/uL Eosinophils # (Auto) 0.1 0.0-0.3 10^3/uL Basophils # (Auto) 0.0 0.0-0.1 10^3/uL Immature Granulocyte # (Auto) 0.0 0.0-0.1 10^3/uL Sodium Level 138 135-145 MMOL/L Potassium Level 4.3 3.6-5.0 MMOL/L Chloride Level 100 98-107 MMOL/L Carbon Dioxide Level 26 21-32 MMOL/L Anion Gap 12 5-14 MMOL/L Blood Urea Nitrogen 11 7-18 MG/DL Creatinine 0.82 0.60-1.30 MG/DL Estimat Glomerular Filtration Rate 78 BUN/Creatinine Ratio 13 Glucose Level 189 H 70-105 MG/DL Calcium Level 10.2 H 8.5-10.1 MG/DL Corrected Calcium 8.5-10.1 MG/DL Magnesium Level 2.1 1.6-2.4 MG/DL Total Bilirubin 0.7 0.1-1.0 MG/DL Aspartate Amino Transf (AST/SGOT) 17 5-34 U/L Alanine Aminotransferase (ALT/SGPT) 18 0-55 U/L Alkaline Phosphatase 71 40-136 U/L Troponin I < 0.028 <0.028 NG/ML Total Protein 7.4 6.4-8.2 GM/DL Albumin 5.0 H 3.2-4.5 GM/DL My Orders Orders - TA,LUCIANO A PA Cbc With Automated Diff (03/14/22 11:50) Comprehensive Metabolic Panel (03/14/22 11:50) Troponin I Emma (03/14/22 11:50) Ekg Tracing (03/14/22 11:50) Chest 1 View, Ap/Pa Only (03/14/22 11:50) Ct Head Wo (03/14/22 11:50) Iv/Invasive Line Insertion .IV start (03/14/22 11:50) Magnesium (03/14/22 11:50) Vital Signs/I&O 03/14/22 11:40 Temp 36.8 Pulse 124 Resp 16 B/P (MAP) 144/104 (117) Pulse Ox 100 O2 Delivery Room Air Capillary Refill : ECG Comment Sinus rhythm, 93 bpm, QRS duration 88 MS, QTc 396 MS Departure Communication (PCP) Patient was slightly hypertensive. Blood pressure continued to improve but stayed around 140/90 systolic. She did have some readings in the 150s. Patient. Anxious related to the elevated blood pressure. History of stroke in January. She has residual left-sided hand weakness and numbness. No new symptoms. CT scan of the head was negative for acute abnormality. Evolution of her previous stroke. No current chest pain,abdominal pain. She has been feeling nauseous since yesterday. Adel dizzy lightheaded when she stood up out of bed quickly. She was not orthostatic hypotensive. Patient with normal kidney function. Lab work was otherwise unremarkable. EKG without evidence of ST elevation or depression. Nausea has improved here. She did increase her lisinopril to 40 mg. Patient is concerned about her blood pressure. Reassured patient that increase her lisinopril 40 mg will likely improve her blood pressure. However she was requesting something different just in case until she follows up with her primary care physician next week. Discussed metoprolol succinate 25 mg extended release if her blood pressure continues to increase. However recommend not checking her blood pressure every hour and only 2 or 3 times at a day. She was given Zofran. Recently started atorvastatin. Patient feels better to go home at this time. If any worsening symptoms return back to ED for further evaluation. Discussed with patient I strongly advise just taking to the 40 mg of lisinopril until seen by primary care physician. Discussed diet changes which may help as well avoid salt. Several blood pressure medications can result in hypotension Impression Primary Impression: HTN (hypertension) Disposition: 01 HOME, SELF-CARE Condition: Stable Departure-Patient Inst. Decision time for Depature: 13:51 Referrals: OCTAVIO WEINER (PCP/Family) Primary Care Physician Patient Instructions: High Blood Pressure in Adults Add. Discharge Instructions: Continue monitoring blood pressure at home. Zofran for nausea. If any worsening symptoms return back to ED. Discussed increasing blood pressure medication to 40 mg if your blood pressure stays below 140 systolic and 90 di astolic. If no improvement will add on metoprolol succinate extended release 25mg at a low dose Scripts Metoprolol Succinate (Metoprolol Succinate) 25 Mg Tab.er.24h 25 MG PO DAILY, #14 TAB Prov: LUCIANO TA 03/14/22 Ondansetron (Ondansetron Odt) 4 Mg Tab.rapdis 4 MG PO Q4H, #8 TAB Prov: LUCIANO TA 03/14/22 LUCIANO TA Mar 14, 2022 11:55
[2022-03-14 12:10] LABS: BASOPHILS % (AUTO) 1 % (0-10); EOSINOPHILS # (AUTO) 0.1 10^3/uL (0.0-0.3); EOSINOPHILS % (AUTO) 1 % (0-10); HEMATOCRIT 42 % (35-52); LYMPHOCYTES # (AUTO) 1.2 10^3/uL (1.0-4.0); LYMPHOCYTES % (AUTO) 22 % (12-44); MEAN CORPUSCULAR HEMOGLOBIN 29 pg (25-34); MEAN CORPUSCULAR HGB CONC 34 g/dL (32-36); MEAN CORPUSCULAR VOLUME 87 fL (80-99); MEAN PLATELET VOLUME 8.9 fL (9.0-12.2); MONOCYTES # (AUTO) 0.3 10^3/uL (0.0-1.0); MONOCYTES % (AUTO) 6 % (0-12); NEUTROPHILS # (AUTO) 3.7 10^3/uL (1.8-7.8); NEUTROPHILS % (AUTO) 70 % (42-75); PLATELET COUNT 239 10^3/uL (130-400); WHITE BLOOD COUNT 5.3 10^3/uL (4.3-11.0)
[2022-03-14 12:26] LABS: CHLORIDE 100 MMOL/L (98-107); POTASSIUM 4.3 MMOL/L (3.6-5.0); SODIUM 138 MMOL/L (135-145)
[2022-03-14 12:27] LABS: CALCIUM 10.2 MG/DL (8.5-10.1)
[2022-03-14 12:29] LABS: GLUCOSE 189 MG/DL (70-105); TOTAL PROTEIN 7.4 GM/DL (6.4-8.2)
[2022-03-14 12:30] LABS: BILIRUBIN,TOTAL 0.7 MG/DL (0.1-1.0); CARBON DIOXIDE 26 MMOL/L (21-32)
[2022-03-14 12:32] LABS: ALKALINE PHOSPHATASE 71 U/L (40-136); CREATININE SERUM 0.82 MG/DL (0.60-1.30); GFR ESTIMATED 78
[2022-03-14 12:33] LABS: BUN/CREATININE RATIO 13
[2022-03-14 12:35] LABS: ALANINE AMINOTRANSFERASE 18 U/L (0-55); MAGNESIUM 2.1 MG/DL (1.6-2.4)
--- NOTE | 2022-03-14 13:28 | Diagnostic Imaging Report ---
INDICATION: High blood pressure and dizziness. TIME OF EXAM: 1:21 PM. COMPARISON: Correlation is made with the prior chest of 02/13/2022. FINDINGS: The heart size is normal. Nodular densities overlying the lung bases likely represent nipple shadows. No infiltrates are seen. There is no effusion or pneumothorax. IMPRESSION: No acute cardiopulmonary process is detected. Dictated by: Dictated on workstation # [id number]
--- NOTE | 2022-03-14 13:35 | Diagnostic Imaging Report ---
CLINICAL INDICATION: Patient complains of high blood pressure starting yesterday morning. Patient reports dizziness. Patient states she doubled her daily dose of lisinopril to 40 this morning. EXAM: Axial CT scan of the brain performed without IV contrast with sagittal and coronal reformatted images. Auto Exposure Controls were utilized during the CT exam to meet ALARA standards for radiation dose reduction. COMPARISON: Head CT without contrast dated 02/13/2022. MRI of the brain without contrast dated 02/14/2022. FINDINGS: There is a small amount of amorphous low density involving the right frontal lobe tavarez radiata region which appears to possibly involve the posterior basal ganglia region. There is no evidence of hemorrhagic transformation. There are no other areas of developing acute infarct. There is no brain herniation or midline shift. There is no hydrocephalus. The basal cisterns are unremarkable. The extracranial soft tissue, skull, and orbits are unremarkable. The paranasal sinuses and mastoid air cells are clear. IMPRESSION: 1: There is no evidence of an acute intracranial process. 2: There is interval expected evolution of the small area of subacute or chronic infarct changes involving the right tavarez radiata/posterior right basal ganglia region. 3: The remainder of this exam shows no significant interval change compared to the prior study of comparison. Dictated by: Dictated on workstation # [id number]
[2022-03-14] MEDS ORDERED: ONDA4TAB11 PO (14:12)
[2022-03-14] MEDS ORDERED: MTP25TSR PO (14:14)
[2022-03-14 14:28] VITALS: BP 138/83
== END 2022-03-14 14:28 | disposition home or self-care (01) ==
LOC: EDUNIT# 11:35 → ER 11:37
DX: I10 Essential (primary) hypertension (principal); Z86.73 Personal history of transient ischemic attack (TIA), and cerebral infarction without residual deficits; Z79.899 Other long term (current) drug therapy; Z28.310 Unvaccinated for COVID-19
CPT/HCPCS: 36415; 70450; 71045; 80053; 83735; 84484; 85025; 93005

== ENCOUNTER 2022-03-22 12:58 | Outpatient (RCR) | payer MEDICARE, OTHER ==
[~2022-03-22 12:58] MED LIST changes: +MTP25TSR PO; +ONDA4TAB11 PO
== END 2022-03-26 | disposition home or self-care (01) ==
PROVIDERS: ATTEND Physician Assistant
DX: I63.9 Cerebral infarction, unspecified (principal); I10 Essential (primary) hypertension

== ENCOUNTER 2022-07-30 23:45 | Emergency (ER) | payer MEDICARE, OTHER ==
[~2022-07-30] VITALS: Ht 173 cm; Wt 52.2 kg
[2022-07-31] MEDS ORDERED: LACTATED RINGERS 1,000 ML IV ONE
[2022-07-31 00:08] LABS: BASOPHILS % (AUTO) 1 % (0-10); EOSINOPHILS # (AUTO) 0.1 10^3/uL (0.0-0.3); EOSINOPHILS % (AUTO) 3 % (0-10); HEMATOCRIT 36 % (35-52); LYMPHOCYTES # (AUTO) 1.6 10^3/uL (1.0-4.0); LYMPHOCYTES % (AUTO) 34 % (12-44); MEAN CORPUSCULAR HEMOGLOBIN 29 pg (25-34); MEAN CORPUSCULAR HGB CONC 33 g/dL (32-36); MEAN CORPUSCULAR VOLUME 88 fL (80-99); MEAN PLATELET VOLUME 8.6 fL (9.0-12.2); MONOCYTES # (AUTO) 0.5 10^3/uL (0.0-1.0); MONOCYTES % (AUTO) 11 % (0-12); NEUTROPHILS # (AUTO) 2.4 10^3/uL (1.8-7.8); NEUTROPHILS % (AUTO) 51 % (42-75); PLATELET COUNT 225 10^3/uL (130-400); WHITE BLOOD COUNT 4.7 10^3/uL (4.3-11.0)
[2022-07-31 00:20] LABS: INR 0.9 (0.8-1.4); PROTHROMBIN TIME PATIENT 12.9 SEC (12.2-14.7)
--- NOTE | 2022-07-31 00:24 | ED General ---
General Chief Complaint: General Problems/Pain Stated Complaint: SOA Nursing Triage Note: PT TO ED BY EMS WITH C/O FEELING WEAK, DIZZY, AND SHAKY FOR THE LAST HOUR. PT DENIES ANY PAIN, N/V/D. REPORTS INCREASED SOB TODAY. Source of Information: Patient Exam Limitations: No Limitations History of Present Illness Date Seen by Provider: Jul 30, 2022 Time Seen by Provider: 23:46 Initial Comments This is 66-year-old woman presents to the emergency room via EMS with complaints of feeling generally weak, lightheaded, and short of breath for about an hour. She denies any pain, fever, cough, vomiting, or diarrhea. She commented to EMS that she felt like she was going to . Although she felt short of breath, she was not in respiratory distress and her oxygen saturation was 98% on room air. Heart rate was 119 with a blood pressure of 152/88. Rhythm was sinus tachycardia. She reports exposure to infectious illness with family members who have flulike symptoms. Patient becomes agitated when asked about viral swabs and adamantly refuses viral swabs. She will not provide an explanation. 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 EMS noted she was sitting in the car when they arrived and she transferred to the cot from her car without any difficulty. She reports history of prior UTIs but is resistant when asked to g bernadine a urine sample. Allergies and Home Medications Allergies Coded Allergies: No Known Drug Allergies (Unverified , 11/24/21) Patient Home Medication List Home Medication List Reviewed: Yes Aspirin (Children's Aspirin) 81 Mg Tab.chew, 81 MG PO DAILY@0900 Prescribed by: KISHAN AMRTINEZ on 02/14/22 1151 Atorvastatin Calcium (Lipitor) 40 Mg Tablet, 40 MG PO HS Prescribed by: KISHAN MARTINEZ on 02/14/22 1151 Lisinopril (Lisinopril) 20 Mg Tablet, 20 MG PO DAILY Prescribed by: NATIVIDAD MORRIS on 02/17/22 1413 Metoprolol Succinate (Metoprolol Succinate) 25 Mg Tab.er.24h, 25 MG PO DAILY Prescribed by: BASIL TRIMBLE on 03/14/22 1414 Ondansetron (Ondansetron Odt) 4 Mg Tab.rapdis, 4 MG PO Q4H Prescribed by: BASIL TRIMBLE on 03/14/22 1412 Review of Systems Review of Systems Constitutional: no symptoms reported EENTM: no symptoms reported Respiratory: see HPI Cardiovascular: see HPI Gastrointestinal: no symptoms reported Genitourinary: no symptoms reported : No Musculoskeletal: no symptoms reported Skin: no symptoms reported Psychiatric/Neurological: See HPI Hematologic/Lymphatic: No Symptoms Reported Immunological/Allergic: no symptoms reported Past Jioqlgl-Tqotpr-Hbbfhe Hx Patient Social History Tobacco Use?: No Use of E-Cig and/or Vaping dev: No Substance use?: No Alcohol Use?: Yes Alcohol Frequency: Once in a while Pt feels they are or have been: No Immunizations Up To Date Influenza Vaccine Up-to-Date: No; Not Current Past Medical History Surgery/Hospitalization HX: COPD, HTN, STROKE Surgeries: Yes Eye Surgery (Cataracts) Respiratory: Yes COPD Cardiac: Yes High Cholesterol, Hypertension Neurological: Yes Stroke : No Genitourinary: Yes (History of UTIs) Gastrointestinal: No Musculoskeletal: No Endocrine: No HEENT: No Cancer: No Psychosocial: No Integumentary: No Physical Exam Vital Signs Vital Signs - First Documented 07/30/22 23:50 Temp 35.9 Pulse 115 Resp 15 B/P (MAP) 174/94 (120) Pulse Ox 100 O2 Delivery Room Air Capillary Refill : Height, Weight, BMI Height: '" Weight: lbs. oz. kg; 17.00 BMI Method: General Appearance: WD/WN, Anxious (Mild), Thin HEENT: PERRL/EOMI, Normal ENT Inspection, Other (Mucous membranes somewhat dry) Neck: Normal Inspection; No JVD Respiratory: Lungs Clear, Normal Breath Sounds, No Accessory Muscle Use, No Respiratory Distress Cardiovascular: No Edema, No Murmur, Tachycardia (Sinus) Gastrointestinal: Normal Bowel Sounds, Non Tender, Soft Extremity: Normal Inspection, Non Tender, No Calf Tenderness, No Pedal Edema Neurologic/Psychiatric: Alert, Oriented x3, No Motor/Sensory Deficits, Normal Mood/Affect, fisher swordfish II-XII Norm as Tested Skin: Normal Color, Warm/Dry Progress/Results/Core Measures Suspected Sepsis SIRS Temperature: Pulse: 115 Respiratory Rate: 15 Laboratory Tests 07/30/22 23:50: White Blood Count 4.7 Blood Pressure 174 /94 Mean: 120 Laboratory Tests 07/30/22 23:50: Creatinine 0.92, INR Comment 0.9, Platelet Count 225, Total Bilirubin 0.3 Results/Orders Lab Results Laboratory Tests Test 07/30/22 23:50 07/31/22 00:15 Range/Units White Blood Count 4.7 4.3-11.0 10^3/uL Red Blood Count 4.10 3.80-5.11 10^6/uL Hemoglobin 12.0 11.5-16.0 g/dL Hematocrit 36 35-52 % Mean Corpuscular Volume 88 80-99 fL Mean Corpuscular Hemoglobin 29 25-34 pg Mean Corpuscular Hemoglobin Concent 33 32-36 g/dL Red Cell Distribution Width 12.3 10.0-14.5 % Platelet Count 225 130-400 10^3/uL Mean Platelet Volume 8.6 L 9.0-12.2 fL Immature Granulocyte % (Auto) 0 % Neutrophils (%) (Auto) 51 42-75 % Lymphocytes (%) (Auto) 34 12-44 % Monocytes (%) (Auto) 11 0-12 % Eosinophils (%) (Auto) 3 0-10 % Basophils (%) (Auto) 1 0-10 % Neutrophils # (Auto) 2.4 1.8-7.8 10^3/uL Lymphocytes # (Auto) 1.6 1.0-4.0 10^3/uL Monocytes # (Auto) 0.5 0.0-1.0 10^3/uL Eosinophils # (Auto) 0.1 0.0-0.3 10^3/uL Basophils # (Auto) 0.0 0.0-0.1 10^3/uL Immature Granulocyte # (Auto) 0.0 0.0-0.1 10^3/uL Prothrombin Time 12.9 12.2-14.7 SEC INR Comment 0.9 0.8-1.4 Activated Partial Thromboplast Time 37 H 24-35 SEC Sodium Level 142 135-145 MMOL/L Potassium Level 4.1 3.6-5.0 MMOL/L Chloride Level 104 98-107 MMOL/L Carbon Dioxide Level 25 21-32 MMOL/L Anion Gap 13 5-14 MMOL/L Blood Urea Nitrogen 23 H 7-18 MG/DL Creatinine 0.92 0.60-1.30 MG/DL Estimat Glomerular Filtration Rate 68 BUN/Creatinine Ratio 25 Glucose Level 121 H 70-105 MG/DL Calcium Level 10.2 H 8.5-10.1 MG/DL Corrected Calcium 9.9 8.5-10.1 MG/DL Magnesium Level 2.0 1.6-2.4 MG/DL Total Bilirubin 0.3 0.1-1.0 MG/DL Aspartate Amino Transf (AST/SGOT) 12 5-34 U/L Alanine Aminotransferase (ALT/SGPT) 12 0-55 U/L Alkaline Phosphatase 59 40-136 U/L Myoglobin 22.7 10.0-92.0 NG/ML Troponin I < 0.028 <0.028 NG/ML C-Reactive Protein High Sensitivity 0.06 0.00-0.50 MG/DL Total Protein 6.7 6.4-8.2 GM/DL Albumin 4.4 3.2-4.5 GM/DL Urine Color YELLOW Urine Clarity CLEAR Urine pH 6.0 5-9 Urine Specific [place] >=1.030 1.016-1.022 Urine Protein TRACE H NEGATIVE Urine Glucose (UA) NEGATIVE NEGATIVE Urine Ketones NEGATIVE NEGATIVE Urine Nitrite NEGATIVE NEGATIVE Urine Bilirubin NEGATIVE NEGATIVE Urine Urobilinogen 0.2 < = 1.0 MG/DL Urine Leukocyte Esterase NEGATIVE NEGATIVE Urine RBC (Auto) TRACE-I H NEGATIVE Urine RBC 0-2 /HPF Urine WBC 5-10 H /HPF Urine Crystals NONE /LPF Urine Bacteria NEGATIVE /HPF Urine Casts PRESENT /LPF Urine Hyaline Casts 0-2 H /LPF Urine Mucus MODERATE H /LPF Urine Culture Indicated NO My Orders Orders - JOSE ANTONIO MUNSON MD Cbc With Automated Diff (07/30/22 23:58) Magnesium (07/30/22 23:58) Ekg Tracing (07/30/22 23:58) Comprehensive Metabolic Panel (07/30/22 23:58) Myoglobin Serum (07/30/22 23:58) Protime With Inr (07/30/22 23:58) Partial Thromboplastin Time (07/30/22 23:58) O2 (07/30/22 23:58) Monitor-Rhythm Ecg Trace Only (07/30/22 23:58) Ed Iv/Invasive Line Start (07/30/22 23:58) Troponin I Emma (07/30/22 23:58) Ua Culture If Indicated (07/30/22 23:58) Hs C Reactive Protein (07/30/22 23:59) Lactated Ringers (Lr 1000 Ml Iv Solution (07/31/22 00:00) Chest 1 View, Ap/Pa Only (07/31/22 00:01) Medications Given in ED Current Medications Medications Dose Ordered Sig/Gregorio Route Start Time Stop Time Status Last Admin Dose Admin Lactated Ringer's 1,000 ml @ 0 mls/hr Q0M ONCE IV 07/31/22 00:00 07/31/22 00:01 DC 07/31/22 00:10 0 MLS/HR Vital Signs/I&O 07/30/22 07/31/22 23:50 01:11 Temp 35.9 Pulse 115 117 Resp 15 14 B/P (MAP) 174/94 (120) 162/84 Pulse Ox 100 99 O2 Delivery Room Air Room Air Capillary Refill : Blood Pressure Mean: 120 Progress Note : Time: 00:59 Progress Note Work-up is essentially unremarkable. I did note her heart rate jumped about 15 bpm when I entered the room. She does appear to have an anxiety component to her tachycardia. IV fluids are infusing. Patient is not short of breath, denies chest pain, and has oxygen saturation of 100% on room air with relaxed respirations. She no longer has a feeling of doom but is concerned about being able to sleep. She has had insomnia for a long time and has not discussed this with her primary care provider. I mentioned melatonin but she states it does not work for her. I had suggested the influenza screening which she adamantly refused. She feels fine for discharge at this time. ECG Initial ECG Impression Date: Jul 31, 2022 Initial ECG Impression Time: 00:12 Initial ECG Rate: 110 Initial ECG Rhythm: S.Tach Initial ECG Intervals: Normal Initial ECG Impression: Normal Comment Sinus tachycardia with no ST elevation or depression. No abnormal intervals or axis deviation. Diagnostic Imaging Diagonstic Imaging: Xray Plain Films/CT/US/NM/MRI: chest Comments Chest x-ray viewed by me and report not yet available. Compared with prior. No acute changes appreciated. Departure Impression Primary Impression: Sinus tachycardia Additional Impressions: Anxiety Insomnia Qualified Codes: G47.00 - Insomnia, unspecified Disposition: HOME, SELF-CARE Condition: Improved Departure-Patient Inst. Decision time for Depature: 01:01 Referrals: OCTAVIO BILLINGSLEY (PCP/Family) Primary Care Physician Patient Instructions: Tachycardia (DC), Anxiety, Adult ED, Insomnia (DC) Add. Discharge Instructions: Drink plenty of clear liquids to stay well-hydrated. For your insomnia you may try Benadryl (diphenhydramine) 25 mg 30 minutes before desired sleep. You may also try [id number] Unisom (doxylamine) per package instructions. Please follow-up with your primary care provider later this morning. Call when the office opens. Return to the ER if you have worsening symptoms despite following these instructions. All discharge instructions reviewed with patient and/or family. Voiced understanding. JOSE ANTONIO MUNSON MD Jul 31, 2022 00:24
[2022-07-31 00:31] LABS: BILIRUBIN,URINE NEGATIVE (NEGATIVE); CLARITY,URINE CLEAR; COLOR,URINE YELLOW; GLUCOSE, URINE (UA) NEGATIVE (NEGATIVE); KETONES,URINE NEGATIVE (NEGATIVE); LEUKOCYTE ESTERASE ,URINE NEGATIVE (NEGATIVE); NITRITE,URINE NEGATIVE (NEGATIVE); PROTEIN,URINE TRACE (NEGATIVE)
[2022-07-31 00:34] LABS: ALBUMIN 4.4 GM/DL (3.2-4.5); BILIRUBIN,TOTAL 0.3 MG/DL (0.1-1.0); CALCIUM 10.2 MG/DL (8.5-10.1); CREATININE SERUM 0.92 MG/DL (0.60-1.30); POTASSIUM 4.1 MMOL/L (3.6-5.0); TOTAL PROTEIN 6.7 GM/DL (6.4-8.2)
[2022-07-31 00:41] LABS: BACTERIA,URINE NEGATIVE /HPF; HYALINE CASTS, URINE 0-2 /LPF; RBC,URINE 0-2 /HPF
[2022-07-31 01:11] VITALS: BP 162/84
--- NOTE | 2022-07-31 07:51 | Diagnostic Imaging Report ---
INDICATION: Chest pain. TECHNIQUE: Single view chest 12:26 AM. CORRELATION STUDY: 03/14/2022 FINDINGS: The heart size, mediastinal configuration and pulmonary vascularity are within normal limits. Lung palmer hyperinflated but overall clear. Right apical and to lesser degree left apical pleural thickening stable. Likely minimal scarlike formation of the right mid lung field. IMPRESSION: 1. Generally stable chest. Hyperinflated lung palmer. No acute cardiac pulmonary abnormality. Dictated by: Dictated on workstation # [id number]
== END 2022-07-31 01:14 | disposition home or self-care (01) ==
LOC: EDUNIT# 23:45 → ER 23:46
DX: F41.9 Anxiety disorder, unspecified (principal); G47.00 Insomnia, unspecified; R00.0 Tachycardia, unspecified; Z28.310 Unvaccinated for COVID-19
CPT/HCPCS: 36415; 71045; 80053; 81000; 83735; 83874; 84484; 85025; 85610; 85730; 86141; 93005; 93041; 96360